=== PATIENT | female | born 1995 | race Hispanic/Latino ===

== ENCOUNTER 2016-09-30 21:47 | Emergency (ER) | payer OTHER ==
[~2016-09-30] VITALS: Ht 162.6 cm; Wt 113.6 kg
[~2016-09-30 21:47] MED LIST: AMOX875T2 PO
[2016-09-30 22:52] VITALS: BP 116/67; PULSE 105; RESP 16; O2SAT 96
--- NOTE | 2016-09-30 22:59 | ED.REPORT ---
HPI-Dental/Mouth Prob Date of Service Sep 30, 2016 ED Provider: MD Shahzad This is a 21 year old female who is 28 weeks presenting to the emergency department due to left sided mandibular tooth pain that began 2 days ago. Denies fever, chills, nausea, vomiting, diarrhea, or constipation at this time. Patient was cleared by family prior to interview and examination today. Nursing Notes Stated Complaint: TOOTH PAIN, EAR AND HEAD PAIN Chief Complaint: Dental Nursing Notes Reviewed: Yes Allergies: Coded Allergies: No Known Allergies (Unverified , 09/30/16) Scheduled Amoxicillin (Amoxicillin) 875 Mg Tablet 875 MG PO BID General Time Seen by MD: 22:57 Chief Complaint Tooth pain Hx Obtained From: Patient Arrived By: Walk-in Onset Occurred: 2 days ago Symptom Duration: Since onset Severity: Current: Moderate Pertinent Negative: Pt denies other symptoms Recent Healthcare: No recent doctor visit, No recent hospitalization Similar Sx Previous: No Past Medical History Past Medical History , 28 weeks on 09/30/16 Reports: Urinary tract infection Past Surgical History denies Smoking History Never Smoker Social History Alcohol Use: Denies alcohol use Drug Use: Denies drug use Occupation lives with partner, work at [employer] 06/13/2016 Ambulatory Status Independent Review of Systems Constitutional: Denies: Chills, Fever Ears / Nose / Throat: Reports: Toothache Respiratory: Denies: Non-productive cough GI: Denies: Abdominal pain, Nausea, Vomiting Complete sys rev & neg: except as marked. Physical Exam Initial Vital Signs Vital Signs (First) Date Time Temp Pulse Resp B/P Pulse Ox O2 Delivery O2 Flow Rate FiO2 09/30/16 21:54 36.2 09/30/16 22:52 105 16 116/67 96 Room Air Initial VS: Reviewed, Vital signs abnormal General/Constitutional: Well-developed, Well-nourished Head / Eyes: Atraumatic, Normocephalic, PERRL Respiratory: Breath sounds normal, Clear to auscultation, No respiratory distress Cardiovascular: Regular rate & rhythm, Heart sounds normal, Intact distal pulses Extremities: Vascular intact, Neuro intact, No swelling, No tenderness Skin: Warm, Dry, No cyanosis Neurologic: Alert, Oriented, Nonfocal Psychiatric: Mood/affect normal, Behavior normal, Normal thought content ENT: Pharynx NL, Tympanic membs NL Swollen and erythematous gum around tooth #17 with swelling and tenderness of adjacent jaw Neck: Supple, No meningismus, Full range of motion, No adenopathy, No swelling , Non-tender, No masses Re-Eval/Medical Decision Med Decision/Clinical Course Gum and jaw swelling associated with tooth #17, possible abscess. Amoxicillin prepack dispensed. Follow up as planned with dentist this week. Patient was monitored at [facility], no abnormalities noted. Counseled Regarding: Diagnosis, Need for follow-up, When/why to return to ED Discharge & Departure Primary Impression: Dental abscess Disposition: Home Discharge Condition All VS Reviewed: Yes Condition: Stable Patient Instructions: Dental Abscess (ED) Additional Instructions: There may be an abscess associated with this wisdom tooth. Amoxicillin 500 mg by mouth 3 times a day, #30 prepack dispensed. This medication is safe for baby. Follow up as planned with your dentist later this week. Referrals: Karley Rodriguez MD (PCP) Scribe Attestation Portions of this note were transcribed by Estevan Sherman. I, Dr. Pike personally performed the history, physical exam and medical decision-making; I reviewed and confirmed the accuracy of the information in the transcribed note. Signed by: tamika yLn. 09/30/2016, 06:00. Caio Pike MD Sep 30, 2016 22:59 ESTEVAN SHERMAN Sep 30, 2016 23:05
[2016-10-01] MEDS ORDERED: _Amoxicillin 500 mg Capsule PO SCH (08:30)
== END 2016-09-30 23:38 | disposition home or self-care (01) ==
LOC: SED 21:47
DX: O99.89 Other specified diseases and conditions complicating pregnancy, childbirth and the puerperium (principal); K04.7 Periapical abscess without sinus; Z3A.28 28 weeks gestation of pregnancy; Z87.440 Personal history of urinary (tract) infections